=== PATIENT | male | born 1990 | race Caucasian/White ===

== ENCOUNTER → 2022-11-06 | Outpatient (CLI) | payer BC ==
[~2022-11-06] MED LIST: AUGMENTIN 875 M1 TAB PO; CLARITIN10 MG PO; NAPROSYN500 MG PO
[2022-11-06 13:17] LABS: BASO % 0.8 % (0.0-1.0); EOS # 0.1 10*3/uL (0.0-0.4); EOS % 2.3 % (1.0-4.0); HEMATOCRIT 44.5 % (42.0-52.0); LYMPH # 1.4 10*3/uL (1.3-4.4); MEAN CELL VOLUME 84.6 fl (80.0-94.0); MEAN CORPUSCULAR HGB 29.5 pg (27.0-31.0); MEAN CORPUSCULAR HGB CONC 34.8 g/dl (33.0-37.0); MEAN PLATELET VOLUME 9.3 fl (9.6-12.3); MONO # 0.4 10*3/uL (0.1-1.0); MONO % 8.4 % (3.0-9.0); NEUT # 2.8 10*3/uL (2.3-7.9); NEUT % 58.3 % (47.0-73.0); PLATELET COUNT AUTOMATED 250 10*3/uL (130-400); RED BLOOD COUNT 5.26 10*6/uL (4.50-5.90); RED CELL DISTRI WIDTH 12.4 % (0-14.5); WHITE BLOOD COUNT 4.7 10*3/uL (4.8-10.8)
[2022-11-06 13:54] LABS: ALKALINE PHOSPHATASE 75 U/L (46-116); BUN 23 mg/dl (9-23); CHLORIDE 104 mmol/L (98-107); CHOLESTEROL 235 mg/dL (<200); LDL CHOLESTEROL 163 mg/dL (9-159); POTASSIUM 4.4 mmol/L (3.4-5.1); SGPT/ALT 19 U/L (10-49); TOTAL PROTEIN 7.3 gm/dL (6.0-8.0); TRIGLYCERIDES 111 mg/dl (<150)
== END | disposition home or self-care (01) ==
LOC: LAB 12:55
PROVIDERS: ATTEND Nurse Practitioner
DX: L30.9 Dermatitis, unspecified (principal); Z68.27 Body mass index [BMI] 27.0-27.9, adult

== ENCOUNTER → 2023-03-07 | Outpatient (CLI) | payer BC | END | disposition home or self-care (01) | LOC: RAD 09:51 | PROVIDERS: ATTEND Nurse Practitioner | DX: M25.521 Pain in right elbow (principal) ==